=== PATIENT | female | born 2005 | race Two or more races ===

== ENCOUNTER 2025-05-11 23:57 | Emergency (ER) | payer MEDICAID ==
[~2025-05-11] VITALS: Ht 162.6 cm; Wt 120.5 kg
[2025-05-12 04:24] VITALS: BP 126/85; PULSE 70; RESP 16; TEMP 97.6; O2SAT 97
--- NOTE | 2025-05-12 06:36 | RADIOLOGY REPORT ---
MEDICAL RECORDS NUMBER: [id number] PROCEDURE: DI CHEST,SINGLE VIEW DATE: 05/12/2025 12:31 AM HISTORY: None given Views:1 COMPARISON: None FINDINGS/IMPRESSION: Lungs: The lungs are clear. Mediastinum: Mediastinal structures appear unremarkable... Skeletal: The skeletal structures appear unremarkable.
--- NOTE | 2025-05-24 21:07 | Physician Documentation ---
History of Present Illness General Chief Complaint: Chest Wall Pain Stated Complaint: SOB Time Seen by MD: 03:50 History of Present Illness Initial Comments 19-year-old female with a known history of asthma presents for evaluation of chest wall pain. The palliating or aggravating factors. Did not attempt to treat it. Denies any fever or chills. Denies any nausea, vomiting, diarrhea. Review of Systems ROS 10 point review of systems was performed and unless noted above in HPI is negative for acute process/complaint. Physical Exam Physical Exam Vital Signs: Temperature: 97.6, Source: Oral, Heart Rate: 70, Respiratory Rate: 16, BP: 126/85, Pulse Oximetry: 97, Weight: 120.500 Oxygen Flow Rate: 0 Physical Exam GENERAL: Awake, alert, oriented, GCS 15, no apparent distress, non-toxic appearing, answers questions, follows commands appropriately. HEENT: Atraumatic, normocephalic, pupils equal, extraocular muscles intact, sclerae anicteric, mucus membranes moist, oropharynx is clear, no stridor. NECK: supple, full active range of motion, trachea midline, no thyromegaly, no lymphadenopathy, no JVD. CARDIOVASCULAR: regular rate/rhythm, no murmurs/gallops/rubs, Pulses are 2+ in all extremities and symmetric. Capillary refill less than 2 seconds. PULMONARY: Nonlabored, good air movement ,no respiratory distress, speaking in full sentences, clear to auscultation bilaterally, no wheezing, no ronchi, no rales, no accessory muscle use. GASTROINTESTINAL: Soft, non-tender, non-distended, normal active bowel sounds, no organomegaly, no pulsatile masses, no CVA tenderness. NEUROLOGIC: Lucid with normal mental status. Normal facial symmetry. Moves all extremities symmetrically and with purpose. No truncal ataxia. Speech is fluid without evidence of dysarthria or aphasia, no focal deficits appreciated. MUSCULOSKELETAL: There is full range of motion of all extremities. There is no joint pain or joint swelling or joint erythema. There is no muscle pain or tenderness or swelling. EXTREMITIES: warm, well-perfused, no cyanosis, no clubbing, no edema, no acute deformities. Skin: warm, dry, no rashes or lesions, no jaundice, no petechiae orpurpura. No ecchymosis. PSYCHIATRIC: Normal affect, normal insight, normal concentration. Focused exam: [] Progress Results/Orders Results/Orders Orders - TERE MONROY DO Chest,Single View (05/12/25 ) Completed Orders - TERE MONROY DO Chest,Single View (05/12/25 ) Medical Decision Making Additional information obtaine: N/A Findings Facility Status: ED Holds, RME process The plan was discussed with the patient, who demonstrates clear understanding of the plan and is in agreement with the plan unless otherwise noted in the chart. All questions have been answered, all concerns were addressed unless otherwise documented. I was available throughout their ED stay for frequent reassessment and questions. Differential Diagnoses (considered and possible or likely): [Differential diagnosis considered includes chest wall pain, pleurisy, pneumonia, pulmonary embolus, GERD, esophagitis, gastritis, anxiety, stress reaction, costochondritis, acute coronary syndrome, aortic dissection, pericarditis, myocarditis, or pneumothorax.] ??Differential Diagnoses (considered and unlikely, not requiring evaluation currently): [See above] MDM Data Please see [facility] for the following: Independent Historians and external Records Review. Historian: [Patient] Independent Historians: ?[None] Medication Management: [Reviewed medication list] Social History and determinants: [Reviewed] Please see the body of the note for the following: Any independent interpretations of ECG, imaging studies. All vitals signs/haemodynamics, ordered tests were independently reviewed and interpreted by myself. Nursing triage complaint and vitals reviewed, additional nursing notes were reviewed as available and I agree unless otherwise noted or documented in contradiction in the chart Vital Signs: Independently reviewed Labs: Independently interpreted Imaging: Independently interpreted Old Medical Records: Independently reviewed, see [facility] for relevant summary and information Pulse Oximetry: [100%] interpreted as [normal on room air] by me [Database Reporting Consultant: [Regular Rate, Regular rhythm, no ectopy, NSR] reviewed and interpreted by me] Additionally notably showing: [Hemodynamically stable. Unremarkable laboratory workup. Unremarkable chest x-ray.] Tests considered but not ordered include: [Does not require advanced imaging, PERC negative] Social Determinants of Health [place]: [place] [facility] [place] [facility] [place] to healthcare due to below par ratio of patient to medical providers. [] Comorbid Conditions Impacting Present Evaluation and Care/Treatment: [] Management Discussions with other Healthcare Providers: [] Treatment and Disposition Medication Management (Given or considered): []. See EMR for details Consideration for Hospitalization/Escalation/Deescalation of Care: Admission for observation has been considered, [however the patient is able to tolerate p.o., their symptoms are controlled, they are able to rely on oral medications, and their chief complaint/diagnosis can be managed on outpatient basis.] ?ED Course:?[] ?Shared decision making:?[] Code status:?FULL Please see the full Electronic Medical Record for full details of nursing documentation, medications list, other records of complete past medical history and conditions, vital signs, laboratory studies, and any radiologic study interpretations by radiologists. Portions of this note were completed using [employer] dictation software and as a result there may exist minor errors in spelling. I have reviewed elements of past family and social history and agree as included in note. Differential Diagnosis See body of main note for differential diagnosis Departure Disposition: 01 HOME / SELF CARE / HOMELESS Impression: Primary Impression: Dyspnea Condition: Improved Discharge Instructions: Shortness of Breath, Adult, Jzda-to-Dopk Education Educated: Patient Educated regarding: diagnosis, treatment, prognosis, need for follow up Signature Scribe Signature: No scribe Attestation: This note accurately reflects clinical decisions, work performed by myself, DO PORFIRIO Roberson NICHOLAS M DO May 24, 2025 21:07
== END 2025-05-12 04:36 | disposition home or self-care (01) ==
LOC: ER 05-12 03:02
DX: R06.00 Dyspnea, unspecified (principal); R07.89 Other chest pain; J45.909 Unspecified asthma, uncomplicated
CPT/HCPCS: 71045; 99283

== ENCOUNTER → 2025-05-12 | Outpatient (CLI) | payer MEDICAID ==
--- NOTE | 2025-05-12 11:33 | ELECTROCARDIOGRAPH REPORT ---
[facility] Test Date: 2025-05-12 Test Time: 00:13:45 Pat Name: TAWANA VOGEL Department: EMERGENCY ROOM Room: Gender: F Hand Alterations Tailor: BATOOL : 2005 Requested By: UNKNOWN UNKNOWN Order Number: [id number] Reading MD: Dr. MARII Yanez Measurements Intervals [place] Rate: 81 P: 20 RI: 141 QRS: 96 QRSD: 94 T: 17 QT: 359 QTc: 417 Interpretive Statements Sinus rhythm Borderline right axis deviation Electronically Signed On 05-13-2025 9:36:[address] MARII Yanez Please click the below link to view image of tracing.
[2025-05-12 11:55] LABS: CREATININE 0.87 MG/DL (0.40-0.90); PRO BRAIN NATRIURETIC PEPTIDE 77 PG/ML (0-125); TOTAL CARBON DIOXIDE 24.2 MMOL/L (24-32); eGFR 84 ML/MIN
[2025-05-12 11:59] LABS: MEAN PLATELET VOLUME 7.8 FL (7.4-10.4); RED CELL DISTRIBUTION WIDTH 14.1 % (11.5-14.5)
== END | disposition home or self-care (01) ==
LOC: LAB 07:16
DX: R06.02 Shortness of breath (principal); R07.89 Other chest pain; N92.4 Excessive bleeding in the premenopausal period
CPT/HCPCS: 36415; 80053; 83880; 84484; 85025; 93005